=== PATIENT | female | born 1950 | race Caucasian/White ===

== ENCOUNTER → 2016-09-30 | Outpatient (CLI) | payer MEDICARE, MEDICAID ==
[~2016-09-30] MED LIST: AMOXICILLIN500 M2 PO; AMOXICILLIN500 MG PO; ASPIRIN ADULT L81 M1 PO; BENTYL10 MG PO; CIPRO250 MG PO; DELTASONE50 MG PO; HYDROCODONE BIT1 T11 PO; K-TAB20 MEQ PO; LEVOTHYROXIN0.088 M1 PO; LOMOTIL 0.025 M1 TA1 PO; MELOXICAM7.5 MG PO; Motrin,Rufen800 MG PO; NAPROSYN500 MG PO; NORCO 5-325 TA1 EACH PO; OMEPRAZOLE40 MG PO; OXYBUTYNIN5 MG PO; PROVENTIL0.09 MG/AC INH; Ranitidine Hyd150 MG PO; SYMBICORT1 AE1 INH; SYNTHROID,LEVO75 MCG PO; TAMSULOSIN HCL0.4 MG PO; TESSALON PERLE200 MG PO; TRAMADOL HCL50 MG PO; TYLENOL325 M1 PO; ULTRAM50 MG PO; ZITHROMAX250 MG PO; ZOFRAN ODT4 MG SL; ZYRTEC10 MG PO
[2016-09-30 17:34] LABS: BILIRUBIN NEGATIVE (NEGATIVE); BLOOD 3+ (NEGATIVE); COLOR YELLOW (YELLOW); GLUCOSE NEGATIVE (NEGATIVE); KETONE NEGATIVE (NEGATIVE); LEUKO ESTERASE 2+ (NEGATIVE); NITRITE NEGATIVE (NEGATIVE); PH 6.5 (5.0-9.0); PROTEIN NEGATIVE (NEGATIVE); SPECIFIC GRAVITY <= 1.005 (1.005-1.030); UROBILINOGEN 0.2 E.U./dl (0.2-1.0)
[2016-09-30 17:40] LABS: CLARITY SL CLOUDY (CLEAR); RBC 16-20 rbc/hpf (0-2)
== END | disposition home or self-care (01) ==
LOC: LAB 16:47
PROVIDERS: Urology
DX: N20.0 Calculus of kidney (principal)

== ENCOUNTER → 2016-10-04 | Day surgery (SDC) | payer OTHER ==
--- NOTE | ~2016-10-04 | O ---
[place], [place] OPERATIVE NOTE NAME: FIOR HAYES UNIT #: [id number] ROOM: DOCTOR: BETTINA JOVEL MD BIRTHDATE: [birth year] DOS: PREOPERATIVE DIAGNOSIS: Right renal calculus. POSTOPERATIVE DIAGNOSIS: Right renal calculus. PROCEDURE: ESWL, right renal calculus. FINDINGS: Preop KUB showed presence of a stone size about 1 cm in diameter in the right lower deanna with a stent in proper position. PROCEDURE: After obtaining satisfactory sedation, the patient was placed on a [employer] lithotripter. The stone was brought at the F2 position and the shockwaves were delivered initially starting at 16 kV after about 100 shocks we have turned to a 21 kV. Total of 3000 shocks were given. Excellent fragmentation was noted at about 1500 kV. It was then completed to a total of 3000 shocks. The patient tolerated the procedure very well. She was then recovered from sedation and was transferred to recovery room in satisfactory condition. BETTINA JOVEL MD CM:OPRECORD:OPERATIVE NOTE [id number] BETTINA JOVEL MD 10/04/16 1211 interface
--- NOTE | ~2016-10-04 | PR ---
[place], [place] PROGRESS NOTE NAME: FIOR HAYES UNIT #: [id number] ROOM: DOCTOR: BETTINA JOVEL MD BIRTHDATE: [birth year] DOS: 09/13/2016 POSTOPERATIVE PROGRESS NOTE PREOPERATIVE DIAGNOSIS: Right renal calculus. POSTOPERATIVE DIAGNOSIS: Right renal calculus. PROCEDURE: ESWL, right renal calculus. COMPLICATIONS: None. ____ DRAINS: None. BLOOD LOSS: None. BETTINA JOVEL MD CM:PNTRANS [id number] BETTINA JOVEL MD 09/15/162023 interface
[2016-10-04 07:00] VITALS: BP 136/52
[2016-10-04 09:07] VITALS: BP 97/42
[2016-10-04 09:19] VITALS: BP 120/50
[2016-10-04 09:36] VITALS: BP 115/40
== END | disposition home or self-care (01) ==
LOC: SDC 09-07 11:00
DX: N20.0 Calculus of kidney (principal); E07.9 Disorder of thyroid, unspecified; K21.9 Gastro-esophageal reflux disease without esophagitis; M19.90 Unspecified osteoarthritis, unspecified site; J44.9 Chronic obstructive pulmonary disease, unspecified; Z87.891 Personal history of nicotine dependence

== ENCOUNTER → 2016-10-11 | Outpatient (CLI) | payer MEDICARE, MEDICAID | END | disposition home or self-care (01) | LOC: RAD 14:29 | DX: N20.0 Calculus of kidney (principal) ==

== ENCOUNTER → 2016-10-18 | Day surgery (SDC) | payer MEDICARE, MEDICAID ==
[~2016-10-18] VITALS: Ht 167.6 cm; Wt 68.9 kg
--- NOTE | ~2016-10-18 | O ---
[place], [place] OPERATIVE NOTE NAME: [facility]OR [facility]AYES [id number] UNIT #: [id number] ROOM: DOCTOR: BETTINA JOVEL MD BIRTHDATE: [birth year] DOS: 10/18/2016 PREOPERATIVE DIAGNOSIS: Status post right renal calculus, extracorporeal shock wave lithotripsy. POSTOPERATIVE DIAGNOSIS: Status post right renal calculus, extracorporeal shock wave lithotripsy. PROCEDURE: Cystoscopy and ureteral stent removal. FINDINGS: The preop KUB was taken last week, which had shown good fragmentation of the calculus. There are few small fragments about 1-2 mm in the lower end of the ureter, which would pass after the stent is removed. DESCRIPTION OF PROCEDURE: After obtaining satisfactory sedation, the patient was placed in lithotomy position. Genitalia was prepped and draped in usual sterile manner. A 21 ACMI scope was then placed into the bladder. The stent was seen coming through the right orifice. A bladder loop tip was then grasped with the grasper and was brought out with the urethral meatus. The stent was then removed gently. Under fluoroscopic control, a complete and good unfolding of the kidney loop was seen, and the stent came out without any difficulty. The patient tolerated the procedure very well. She was then recovered from sedation and was transferred to Recovery Room in satisfactory condition. BETTINA JOVEL MD CM:OPRECORD:OPERATIVE NOTE [id number] BETTINA JOVEL MD 10/18/16 1128 interface
[2016-10-18 06:45] VITALS: BP 142/60
[2016-10-18 08:02] VITALS: BP 99/42
[2016-10-18 08:32] VITALS: BP 108/52
== END | disposition home or self-care (01) ==
LOC: SDC 10-15 11:00
DX: Z46.6 Encounter for fitting and adjustment of urinary device (principal); J44.9 Chronic obstructive pulmonary disease, unspecified; K21.9 Gastro-esophageal reflux disease without esophagitis; M19.90 Unspecified osteoarthritis, unspecified site

== ENCOUNTER → 2016-12-10 | Outpatient (CLI) | payer MEDICARE, MEDICAID | END | disposition home or self-care (01) | LOC: MAMMO 13:30 | DX: Z12.31 Encounter for screening mammogram for malignant neoplasm of breast (principal); M79.604 Pain in right leg; M47.896 Other spondylosis, lumbar region; M25.551 Pain in right hip ==

== ENCOUNTER 2017-01-17 14:09 | Emergency (ER) | payer MEDICARE, MEDICAID ==
[~2017-01-17] VITALS: Ht 160 cm; Wt 70.8 kg
[2017-01-17] MEDS ORDERED: VENTOLIN H0.09 MG/AC INH (14:28)
[2017-01-17] MEDS ORDERED: CYCLOBENZAPRINE10 MG PO (14:28)
[2017-01-17] MEDS ORDERED: MELOXICAM7.5 MG PO (14:29)
[2017-01-17 15:32] LABS: BASO # 0.1 10*3/uL (0.0-0.1); BASO % 0.7 % (0.0-1.0); EOS # 1.1 10*3/uL (0.0-0.4); EOS % 13.3 % (1.0-4.0); HEMATOCRIT 44.2 % (37.0-47.0); LYMPH % 24.2 % (27.0-41.0); MEAN CELL VOLUME 87.7 fl (81.0-99.0); MEAN CORPUSCULAR HGB 29.8 pg (27.0-31.0); MEAN CORPUSCULAR HGB CONC 33.9 g/dl (33.0-37.0); MEAN PLATELET VOLUME 10.5 fl (9.6-12.3); MONO # 0.5 10*3/uL (0.1-1.0); MONO % 6.4 % (3.0-9.0); NEUT # 4.5 10*3/uL (2.3-7.9); NEUT % 55.2 % (47.0-73.0); PLATELET COUNT AUTOMATED 325 10*3/uL (130-400); RED BLOOD COUNT 5.04 10*6/uL (4.10-5.10); RED CELL DISTRI WIDTH 12.8 % (0-14.5); WHITE BLOOD COUNT 8.1 10*3/uL (4.8-10.8)
[2017-01-17 15:49] LABS: ALBUMIN 3.5 gm/dl (3.1-4.5); BILIRUBIN, TOTAL 0.4 mg/dl (0.2-1.0); BUN 14 mg/dl (7-24); CARBON DIOXIDE 29 mmol/L (21-32); CHLORIDE 104 mmol/L (98-107); EST GLOM FILT AFRICAN AMERICAN > 60 ml/min; GLUCOSE 96 mg/dL (65-99); POTASSIUM 4.3 mmol/L (3.5-5.1); SGOT/AST 23 IU/L (3-35); SGPT/ALT 18 U/L (12-78); SODIUM 138 mmol/L (136-145); TOTAL PROTEIN 7.9 gm/dL (6.4-8.2)
[2017-01-17 15:52] LABS: ALKALINE PHOSPHATASE 129 U/L (45-117)
[2017-01-17] MEDS ORDERED: PROAIR HFA8.5 GM INH (17:04)
[2017-01-17] MEDS ORDERED: MEDROL DOSEPAK4 MG PO (17:04)
[2017-01-17] MEDS ORDERED: FLOVENT HFA10.6 GM IH (17:04)
== END 2017-01-17 17:36 | disposition home or self-care (01) ==
LOC: ED 14:09
PROVIDERS: Emergency Medicine
DX: R06.02 Shortness of breath (principal); R05 Cough; J45.909 Unspecified asthma, uncomplicated; F17.200 Nicotine dependence, unspecified, uncomplicated; Z88.6 Allergy status to analgesic agent; Z79.82 Long term (current) use of aspirin; Z79.899 Other long term (current) drug therapy

== ENCOUNTER 2017-05-15 00:36 | Emergency (ER) | payer MEDICARE, MEDICAID ==
[~2017-05-15] VITALS: Ht 160 cm; Wt 70.3 kg
[~2017-05-15 00:36] MED LIST changes: +CYCLOBENZAPRINE10 MG PO; +FLOVENT HFA10.6 GM IH; +MEDROL DOSEPAK4 MG PO; +PROAIR HFA8.5 GM INH; +VENTOLIN H0.09 MG/AC INH
[2017-05-15] MEDS ORDERED: CETIRIZINE10 MG PO (00:48)
[2017-05-15] MEDS ORDERED: HYDROCHLOROTH12.5 M3 PO (00:49)
[2017-05-15 00:51] LABS: BASO # 0.1 10*3/uL (0.0-0.1); EOS # 0.7 10*3/uL (0.0-0.4); EOS % 8.4 % (1.0-4.0); HEMATOCRIT 42.8 % (37.0-47.0); HEMOGLOBIN 14.8 g/dl (12.0-16.0); LYMPH % 33.9 % (27.0-41.0); MEAN CELL VOLUME 86.1 fl (81.0-99.0); MEAN CORPUSCULAR HGB 29.8 pg (27.0-31.0); MEAN CORPUSCULAR HGB CONC 34.6 g/dl (33.0-37.0); MEAN PLATELET VOLUME 10.5 fl (9.6-12.3); MONO # 0.7 10*3/uL (0.1-1.0); MONO % 7.6 % (3.0-9.0); NEUT # 4.3 10*3/uL (2.3-7.9); NEUT % 48.9 % (47.0-73.0); PLATELET COUNT AUTOMATED 268 10*3/uL (130-400); RED BLOOD COUNT 4.97 10*6/uL (4.10-5.10); RED CELL DISTRI WIDTH 12.4 % (0-14.5); WHITE BLOOD COUNT 8.8 10*3/uL (4.8-10.8)
[2017-05-15 01:11] LABS: ALBUMIN 3.3 gm/dl (3.1-4.5); ALKALINE PHOSPHATASE 110 U/L (45-117); BILIRUBIN, TOTAL 0.5 mg/dl (0.2-1.0); BUN 12 mg/dl (7-24); CARBON DIOXIDE 30 mmol/L (21-32); CHLORIDE 101 mmol/L (98-107); EST GLOM FILT AFRICAN AMERICAN > 60 ml/min; GLUCOSE 105 mg/dL (65-99); SGOT/AST 29 IU/L (3-35); SGPT/ALT 25 U/L (12-78); SODIUM 138 mmol/L (136-145); TOTAL PROTEIN 7.4 gm/dL (6.4-8.2)
[2017-05-15 01:12] LABS: TROPONIN I < 0.015 ng/ml (<0.045)
[2017-05-15] MEDS ORDERED: AVPAK AZITHROM250 M1 PO (03:56)
[2017-05-15] MEDS ORDERED: PREDNISONE50 MG PO (03:56)
== END 2017-05-15 04:05 | disposition home or self-care (01) ==
LOC: ED 00:36
PROVIDERS: Student in an Organized Health Care Education/Training Program
DX: J44.1 Chronic obstructive pulmonary disease with (acute) exacerbation (principal); Z88.6 Allergy status to analgesic agent; Z88.1 Allergy status to other antibiotic agents; Z79.82 Long term (current) use of aspirin; Z79.899 Other long term (current) drug therapy; F17.200 Nicotine dependence, unspecified, uncomplicated

== ENCOUNTER 2017-08-06 11:29 | Emergency (ER) | payer MEDICARE, MEDICAID ==
[~2017-08-06] VITALS: Ht 170.1 cm; Wt 74.8 kg
[~2017-08-06 11:29] MED LIST changes: +AVPAK AZITHROM250 M1 PO; +CETIRIZINE10 MG PO; +HYDROCHLOROTH12.5 M3 PO; +PREDNISONE50 MG PO
[2017-08-06 11:44] LABS: BASO # 0.1 10*3/uL (0.0-0.1); BASO % 0.8 % (0.0-1.0); EOS # 0.6 10*3/uL (0.0-0.4); EOS % 6.8 % (1.0-4.0); HEMATOCRIT 43.3 % (37.0-47.0); HEMOGLOBIN 14.9 g/dl (12.0-16.0); LYMPH # 1.8 10*3/uL (1.3-4.4); LYMPH % 20.4 % (27.0-41.0); MEAN CELL VOLUME 87.8 fl (81.0-99.0); MEAN CORPUSCULAR HGB 30.2 pg (27.0-31.0); MEAN CORPUSCULAR HGB CONC 34.4 g/dl (33.0-37.0); MEAN PLATELET VOLUME 10.4 fl (9.6-12.3); MONO # 0.7 10*3/uL (0.1-1.0); NEUT # 5.5 10*3/uL (2.3-7.9); NEUT % 63.8 % (47.0-73.0); PLATELET COUNT AUTOMATED 246 10*3/uL (130-400); RED BLOOD COUNT 4.93 10*6/uL (4.10-5.10); RED CELL DISTRI WIDTH 13.6 % (0-14.5); WHITE BLOOD COUNT 8.6 10*3/uL (4.8-10.8)
[2017-08-06 12:01] LABS: ALBUMIN 3.5 gm/dl (3.1-4.5); ALKALINE PHOSPHATASE 98 U/L (45-117); BUN 13 mg/dl (7-24); CHLORIDE 101 mmol/L (98-107); CREATININE 0.58 mg/dL (0.55-1.02); POTASSIUM 3.5 mmol/L (3.5-5.1); SGOT/AST 13 IU/L (3-35); SGPT/ALT 20 U/L (12-78); SODIUM 139 mmol/L (136-145); TOTAL PROTEIN 7.3 gm/dL (6.4-8.2)
[2017-08-06 12:02] LABS: TROPONIN I < 0.015 ng/ml (<0.045)
[2017-08-06] MEDS ORDERED: LEVAQUIN750 M1 PO (12:17)
[2017-08-06] MEDS ORDERED: PREDNISONE50 MG PO (12:19)
== END 2017-08-06 14:11 | disposition home or self-care (01) ==
LOC: ED 11:29
PROVIDERS: Student in an Organized Health Care Education/Training Program
DX: J44.1 Chronic obstructive pulmonary disease with (acute) exacerbation (principal); Z79.82 Long term (current) use of aspirin; Z88.6 Allergy status to analgesic agent; Z88.8 Allergy status to other drugs, medicaments and biological substances

== ENCOUNTER 2017-08-20 18:26 | Emergency (ER) | payer MEDICARE, MEDICAID ==
[~2017-08-20] VITALS: Wt 72.6 kg
[~2017-08-20 18:26] MED LIST changes: +LEVAQUIN750 M1 PO
[2017-08-20] MEDS ORDERED: TESSALON PERLE100 M1 PO (19:37)
[2017-08-20] MEDS ORDERED: PREDNISONE10 MG PO (19:37)
[2017-08-20] MEDS ORDERED: PROAIR HFA8.5 GM INH (19:37)
== END 2017-08-20 19:41 | disposition home or self-care (01) ==
LOC: ED 18:26
DX: J40 Bronchitis, not specified as acute or chronic (principal); F17.200 Nicotine dependence, unspecified, uncomplicated; K58.9 Irritable bowel syndrome, unspecified; Z98.890 Other specified postprocedural states; Z87.442 Personal history of urinary calculi; Z98.42 Cataract extraction status, left eye; Z98.41 Cataract extraction status, right eye; Z79.899 Other long term (current) drug therapy; Z88.5 Allergy status to narcotic agent; Z88.3 Allergy status to other anti-infective agents; Z79.82 Long term (current) use of aspirin

== ENCOUNTER 2023-01-03 16:14 | Emergency (ER) | payer OTHER, MEDICAID ==
[~2023-01-03] VITALS: Ht 160 cm; Wt 72.6 kg
[~2023-01-03 16:14] MED LIST changes: +PREDNISONE10 MG PO; +TESSALON PERLE100 M1 PO
[2023-01-03] MEDS ORDERED: ZETIA10 MG PO (16:44)
[2023-01-03] MEDS ORDERED: PROVENTIL HFA6.7 GM INH (16:44)
[2023-01-03] MEDS ORDERED: BUDESONIDE-FO10.2 G1 INH (16:45)
== END 2023-01-03 21:49 | disposition left against medical advice (07) ==
LOC: ED 16:14
DX: S32.018A Other fracture of first lumbar vertebra, initial encounter for closed fracture (principal); J44.9 Chronic obstructive pulmonary disease, unspecified; K21.9 Gastro-esophageal reflux disease without esophagitis; M19.90 Unspecified osteoarthritis, unspecified site; Z88.5 Allergy status to narcotic agent; Z88.8 Allergy status to other drugs, medicaments and biological substances; Z98.890 Other specified postprocedural states; Z87.442 Personal history of urinary calculi; Z98.49 Cataract extraction status, unspecified eye; X50.0XXA Overexertion from strenuous movement or load, initial encounter; Y93.89 Activity, other specified; Y92.89 Other specified places as the place of occurrence of the external cause; Y99.8 Other external cause status

== ENCOUNTER 2024-01-04 00:43 | Emergency (ER) | payer OTHER, MEDICAID ==
[~2024-01-04] VITALS: Ht 157.4 cm
[~2024-01-04 00:43] MED LIST changes: +BUDESONIDE-FO10.2 G1 INH; +PROVENTIL HFA6.7 GM INH; +ZETIA10 MG PO
[2024-01-04] MEDS ORDERED: methylPREDNISolone sod succ 125 MG VIAL IV ONE (00:55)
[2024-01-04] MEDS ORDERED: Albuterol Sulf/Ipratropium 3 ML VIAL NEB ONE (00:55)
[2024-01-04 01:11] LABS: BASO # 0.1 10*3/uL (0.0-0.1); EOS # 0.8 10*3/uL (0.0-0.4); EOS % 9.4 % (1.0-4.0); HEMATOCRIT 44.5 % (37.0-47.0); LYMPH # 2.6 10*3/uL (1.3-4.4); LYMPH % 31.7 % (27.0-41.0); MEAN CELL VOLUME 94.3 fl (81.0-99.0); MEAN CORPUSCULAR HGB 30.9 pg (27.0-31.0); MEAN CORPUSCULAR HGB CONC 32.8 g/dl (33.0-37.0); MEAN PLATELET VOLUME 10.7 fl (9.6-12.3); MONO # 0.6 10*3/uL (0.1-1.0); NEUT # 4.1 10*3/uL (2.3-7.9); NEUT % 50.7 % (47.0-73.0); PLATELET COUNT AUTOMATED 272 10*3/uL (130-400); RED BLOOD COUNT 4.72 10*6/uL (4.10-5.10); RED CELL DISTRI WIDTH 13.8 % (0-14.5); WHITE BLOOD COUNT 8.2 10*3/uL (4.8-10.8)
[2024-01-04 01:33] LABS: ALKALINE PHOSPHATASE 119 U/L (46-116); BUN 14 mg/dl (9-23); CHLORIDE 99 mmol/L (98-107); SGPT/ALT 17 U/L (5-49); TOTAL PROTEIN 6.8 gm/dL (6.0-8.0)
[2024-01-04] MEDS ORDERED: BENZONATATE100 M1 PO (03:02)
[2024-01-04] MEDS ORDERED: ZITHROMAX250 MG PO (03:02)
[2024-01-04] MEDS ORDERED: PREDNISONE20 M1 PO (03:02)
[2024-01-04] MEDS ORDERED: POTASSIUM CHLORIDE 20 MEQ TAB PO ONE (03:05)
[2024-01-04] MEDS ORDERED: ALBUTEROL 8 GM INHALER INH ONE (03:05)
== END 2024-01-04 06:36 | disposition home or self-care (01) ==
LOC: ED 00:43
PROVIDERS: Internal Medicine
DX: J44.1 Chronic obstructive pulmonary disease with (acute) exacerbation (principal); E87.6 Hypokalemia; K21.9 Gastro-esophageal reflux disease without esophagitis; M19.90 Unspecified osteoarthritis, unspecified site; Z88.5 Allergy status to narcotic agent; Z88.8 Allergy status to other drugs, medicaments and biological substances; Z98.890 Other specified postprocedural states